=== PATIENT | female | born 1995 | race Caucasian/White ===

== ENCOUNTER 2020-06-12 14:44 | Emergency (ER) | payer MEDICAID ==
[~2020-06-12] VITALS: Ht 154.9 cm; Wt 79.4 kg
[2020-06-12 15:00] VITALS: BP 117/69; Ht 154.9 cm; Wt 79.4 kg
== END 2020-06-12 17:11 | disposition home or self-care (01) ==
LOC: ED 14:44
DX: O36.8120 Decreased fetal movements, second trimester, not applicable or unspecified (principal); Z3A.26 26 weeks gestation of pregnancy